=== PATIENT | male | born 1980 | race Caucasian/White ===

== ENCOUNTER 2018-08-02 09:30 | Emergency (ER) | payer OTHER ==
[2018-08-02 10:07] VITALS: BP 167/98
--- NOTE | 2018-08-02 10:23 | UC ---
Laceration HPI - HPI Summary HPI Summary: 37 year ld male with no pmh no medications presents after hitting head on metal in back of van at 8:30AM. wound cleaned, glued, steri-stripped by co-worker. + throbbing over area, no SOLORIO, N/V, vision changes, no LOC. no prior injuries, no difficulty with wound healing. - History Of Current Complaint Chief Complaint: UCLaceration Stated Complaint: CUT TO HEAD Time Seen by Provider: 08/02/18 10:20 Hx Obtained From: Patient Laceration Location: Head Mechanism Of Injury: Sharp Trauma Onset/Duration: Sudden Onset, Lasting Hours Severity: Mild Pain Intensity: 3 Pain Scale Used: 0-10 Numeric - Allergies/Home Medications Allergies/Adverse Reactions: Allergies Allergy/AdvReac Type Severity Reaction Status Date / Time No Known Allergies Allergy Verified 08/02/18 09:55 Home Medications: Home Medications NK [No Home Medications Reported] 08/02/18 [History Confirmed 08/02/18] PMH/Surg Hx/FS Hx/Imm Hx Previously Healthy: Yes - Surgical History Surgical History: Yes Surgery Procedure, Year, and Place: undescended testicle - Social History Alcohol Use: Rare Alcohol Amount: 1-2/month Substance Use Type: None Smoking Status (MU): Former Smoker When Did the Patient Quit Smoking/Using Tobacco: 1 month ago Review of Systems All Other Systems Reviewed And Are Negative: Yes Constitutional: Positive: Negative Skin: Positive: Bruising Neurological: Positive: Headache - throbbing over cut Is Patient Immunocompromised?: No Physical Exam Triage Information Reviewed: Yes Appearance: Well-Appearing, No Pain Distress, Well-Nourished Vital Signs: Initial Vital Signs Temp 98.3 F 08/02/18 09:50 Pulse 67 08/02/18 09:50 Resp 18 08/02/18 09:50 BP 167/98 08/02/18 09:50 Pulse Ox 98 08/02/18 09:50 Vital Signs Reviewed: Yes Eyes: Positive: Conjunctiva Clear Neck: Positive: Supple, Nontender, No Lymphadenopathy Neurological Exam: Normal Neurological: Positive: Alert, Muscle Tone Normal Psychological Exam: Normal Skin: Positive: Other - 2cm linear laceration, partial thickness, over mid scalp , frontal region, midline. bleeding controlled, no bruising noted. mild TTP Laceration Repair - Laceration Repair 1 Description: Linear Laceration Size After Repair: Length (cm) - 2, Width (mm) - 1mm, Depth (mm) - 1mm Contamination/FB Removal: no Modified For Repair: No Cleansing Completed Via Routine Prep: Yes Irrigation With Pressure Irrigation Device: No Closure Material: Skin Adhesive Suture Of: Skin Laceration Course/Dx - Course/Dx Course Of Treatment: partial thickness, skin adhesive after cleaning. tolerated well, bleeding controlled, monitor for infection. - Differential Dx - Laceration/Wound Differental Diagnoses: Laceration - Diagnosis Provider Diagnosis: Laceration of scalp Discharge - Sign-Out/Discharge Documenting (check all that apply): Patient Departure All imaging exams completed and their final reports reviewed: No Studies - Discharge Plan Condition: Good Disposition: HOME Patient Education Materials: Laceration (ED), Skin Adhesive Care (ED) Forms: *Work Release Referrals: Darrian Ayers DO [Primary Care Provider] - Additional Instructions: - Keep area dry, clean for next 48 hours, OK to shower after that, no submerging wound x 5 days - Follow up with primary doctor or here if increased pain, redness, drainage or for signs of concussion- nausea/ vomiting, headache no relieved by tylenol, decreased vision/ speech/ memory changes. - Tylenol as needed for pain - Billing Disposition and Condition Condition: GOOD Disposition: Home
== END 2018-08-02 10:39 | disposition home or self-care (01) ==
LOC: UCEAST 09:30
DX: S01.01XA Laceration without foreign body of scalp, initial encounter (principal); W22.8XXA Striking against or struck by other objects, initial encounter; Y92.9 Unspecified place or not applicable
CPT/HCPCS: 12001; 99201; G0463